=== PATIENT | male | born 1960 | race Caucasian/White ===

== ENCOUNTER → 2024-07-04 08:07 | Outpatient (REF) | payer BC, SELFPAY | LOC: RAD 08:07 | PROVIDERS: ATTENDING PHYSICIAN Thoracic Surgery (Cardiothoracic Vascular Surgery); FAMILY PHYSICIAN Family Medicine | DX: I71.21 Aneurysm of the ascending aorta, without rupture (principal) | CPT/HCPCS: 71275; Q9967 ==

== ENCOUNTER → 2025-07-10 10:37 | Outpatient (REF) | payer BC, SELFPAY | LOC: RAD 10:37 | PROVIDERS: ATTENDING PHYSICIAN Family Medicine | DX: I71.21 Aneurysm of the ascending aorta, without rupture (principal) | CPT/HCPCS: 71275; Q9967 ==